=== PATIENT | female | born 1985 ===

== ENCOUNTER 2018-05-17 09:37 | Outpatient (CLI) | payer OTHER | END 2018-05-17 09:38 | disposition home or self-care (01) | LOC: C.LAB 09:37 | DX: N92.6 Irregular menstruation, unspecified (principal) ==

== ENCOUNTER 2018-05-24 12:26 | Outpatient (CLI) | payer OTHER | END 2018-05-24 12:27 | disposition home or self-care (01) | LOC: C.LAB 12:26 | DX: Z34.81 Encounter for supervision of other normal pregnancy, first trimester (principal) ==

== ENCOUNTER 2018-06-14 16:00 | Emergency (ER) | payer MEDICAID, OTHER ==
[2018-06-14 16:05] VITALS: BP 127/77; PULSE 79; RESP 20; TEMP 98.5; O2SAT 100
--- NOTE | 2018-06-14 16:19 | C.PDOC ---
History Of Present Illness Patient is a 32 year old female, who is 11 weeks , presenting to the ED for evaluation of intermittent lower abdominal pain with nausea since yesterday. Patient points to suprapubic area when describing the pain. Patient also reports having constipation for a few days, but did have a small hard bowel movement this morning. She denies any dysuria, vaginal bleeding, vaginal discharge, back pain, or vomiting. Patient has care including US and her OBGYN is . Time Seen by Provider: 06/14/18 16:11 Chief Complaint (Nursing): Abdominal Pain History Per: Patient History/Exam Limitations: no limitations Onset/Duration Of Symptoms: Days (1) Current Symptoms Are (Timing): Still Present Quality Of Discomfort: "Pain" (lower abdominal area) Associated Symptoms: Nausea, Constipation. denies: Vomiting, Back Pain Recent travel outside of the [place]: [place] Additional History Per: Patient Abnormal Vaginal Bleeding: No : 1 Para: 0 Past Medical History Reviewed: Historical Data, Nursing Documentation, Vital Signs Vital Signs: Last Vital Signs Temp 98.5 F 06/14/18 16:03 Pulse 79 06/14/18 16:03 Resp 20 06/14/18 16:03 BP 127/77 06/14/18 16:03 Pulse Ox 100 06/14/18 16:03 - Medical History PMH: No Chronic Diseases Surgical History: No Surg Hx Family History: States: No Known Family Hx - Social History Hx Alcohol Use: Yes Hx Substance Use: No - Immunization History Hx Tetanus Toxoid Vaccination: No Hx Influenza Vaccination: No Review Of Systems Gastrointestinal: Positive for: Nausea, Abdominal Pain (suprapubic area ), Constipation. Negative for: Vomiting Genitourinary: Negative for: Dysuria, Vaginal Discharge, Vaginal Bleeding Musculoskeletal: Negative for: Back Pain Physical Exam - Physical Exam Appears: Well, Non-toxic, No Acute Distress Skin: Normal Color, Warm, Dry, No Rash Head: Atraumatic, Normacephalic Eye(s): bilateral: Normal Inspection Oral Mucosa: Moist Neck: Normal ROM Chest: Symmetrical Cardiovascular: Rhythm Regular, No Murmur Respiratory: Normal Breath Sounds, No Rales, No Rhonchi, No Wheezing Gastrointestinal/Abdominal: Bowel Sounds, Soft, Tenderness (minor tenderness to suprapubic region ), No Mass, No Distention, No Guarding, No Rebound Back: No CVA Tenderness Neurological/Psych: Oriented x3, Normal Speech ED Course And Treatment O2 Sat by Pulse Oximetry: 100 (on RA) Pulse Ox Interpretation: Normal Medical Decision Making Medical Decision Making: Plan: Urinalysis UA negative. Patient remained well and in no acute distress. Abdomen soft without guarding and no reports of bleeding. Patient symptoms likely related to constipation. Recommend drinking fluids and increasing fiber intake. Rx given. Recommend follow up with OB outpatient. IF patient develops increased pain, vaginal bleeding or other concern advised to return to ER Disposition Counseled Patient/Family Regarding: Diagnosis, Need For Followup, Rx Given - Disposition Referrals: Angelita Valles, ACNP-BC [Advanced Practice Nurse] - Disposition: HOME/ ROUTINE Disposition Time: 16:49 Condition: GOOD Additional Instructions: [place] laxante para ayudar con el estreimiento Come ms taylor y mary santos. Seguimiento con mcclain mdico. Regrese al hospital si presenta dolor intenso o sangrado. Prescriptions: Magnesium Hydroxide [Milk Of Magnesia] 30 ml PO HS PRN #26 oz PRN Reason: Constipation Psyllium Husk/Aspartame [Metamucil Fiber Singles Packet] 3.4 gm PO DAILY #12 powd.pack Instructions: Constipation, Adult (DC) Print Language: ROMANIAN - POA Present On Arrival: None - Clinical Impression Clinical Impression: Constipation during - PA / FASTENER TECHNOLOGIST / Resident Statement MD/DO has examined the patient and agrees with the treatment plan. - Scribe Statement The provider has reviewed the documentation as recorded by the Gómez Massey All medical record entries made by the Hawkibthanh were at my direction and personally dictated by me. I have reviewed the chart and agree that the record accurately reflects my personal performance of the history, physical exam, medical decision making, and the department course for this patient. I have also personally directed, reviewed, and agree with the discharge instructions and disposition.
[2018-06-14 16:44] LABS: SQUAMOUS EPITHIAL 1 /hpf (0-5); URINE BILIRUBIN NEGATIVE (NEGATIVE); URINE BLOOD 1+ (NEGATIVE); URINE CLARITY Clear (Clear); URINE COLOR Yellow (YELLOW); URINE GLUCOSE (UA) NORMAL (Normal); URINE LEUKOCYTE ESTERASE NEG Leu/uL (Negative); URINE PROTEIN NEGATIVE (NEGATIVE); URINE UROBILINOGEN NORMAL mg/dL (0.2-1.0)
== END 2018-06-14 16:58 | disposition home or self-care (01) ==
LOC: C.ER 16:00
DX: O26.891 Other specified pregnancy related conditions, first trimester (principal); K59.00 Constipation, unspecified; Z3A.11 11 weeks gestation of pregnancy

== ENCOUNTER 2018-06-16 13:00 | Emergency (ER) | payer MEDICAID ==
[2018-06-16] MEDS ORDERED: Sodium Chloride 0.9% 1,000 ML IV ONE (13:30)
[2018-06-16 13:33] VITALS: O2SAT 100
--- NOTE | 2018-06-16 14:11 | C.PDOC ---
History Of Present Illness 32 year old female with history of hypothyroidism presents to ED with complaint of suprapubic abd pain that began 3 days ago. Patient is 11 weeks . , P:0, A:0. pt seen 2 days ago, sent home after dx constipation. . Patient denies fever,vaginal bleeding, nausea, and vomiting. Patient has no other complaints. Time Seen by Provider: 06/16/18 13:24 Chief Complaint (Nursing): Abdominal Pain History Per: Patient History/Exam Limitations: no limitations Onset/Duration Of Symptoms: Days (3) Current Symptoms Are (Timing): Still Present Severity: None Location Of Pain/Discomfort: Periumbilical, Other (lower abdomen) Quality Of Discomfort: "Pain" Associated Symptoms: denies: Fever, Nausea, Vomiting Exacerbating Factors: None Alleviating Factors: None Abnormal Vaginal Bleeding: No : 1 Para: 0 Miscarriage: 0 Past Medical History Reviewed: Historical Data, Nursing Documentation, Vital Signs Vital Signs: Last Vital Signs Temp 98.8 F 06/16/18 13:16 Pulse 109 H 06/16/18 13:16 Resp 20 06/16/18 13:16 BP 126/75 06/16/18 13:16 Pulse Ox 100 06/16/18 13:16 - Medical History PMH: Hypothyroidism Surgical History: No Surg Hx Family History: States: Unknown Family Hx - Social History Hx Alcohol Use: Yes Hx Substance Use: No - Immunization History Hx Tetanus Toxoid Vaccination: No Hx Influenza Vaccination: No Hx Pneumococcal Vaccination: No Review Of Systems Constitutional: Negative for: Fever, Chills, Weakness Gastrointestinal: Positive for: Abdominal Pain (lower, chi-umbilical area). Negative for: Nausea, Vomiting Genitourinary: Negative for: Vaginal Bleeding Neurological: Negative for: Weakness, Numbness, Dizziness Physical Exam - Physical Exam Appears: Well, Non-toxic, No Acute Distress Skin: Normal Color, Warm, Dry Head: Atraumatic, Normacephalic Neck: Normal ROM, Supple Chest: Symmetrical, No Deformity Cardiovascular: Rhythm Regular, No Murmur Respiratory: No Accessory Muscle Use Gastrointestinal/Abdominal: Soft, Tenderness (supra-pubic area) Neurological/Psych: Oriented x3, Normal Speech, Normal Cognition ED Course And Treatment - Laboratory Results Result Diagrams: 06/16/18 14:09 06/16/18 14:09 O2 Sat by Pulse Oximetry: 100 (in RA) Medical Decision Making Medical Decision Making: Impression: 32 year old female with suprapubic Plan: Transvaginal US ordered for patient Patient given IV fluids and Tylenol PO Labs ordered with UA and U-preg labs mild leukocytosis (previous labs iwth mild leukocytosis), nonspecific. NO rlq ttp. reasssessed numerous times no migration to rlq. pt eating in er in nad. no axorexia. appendcitiis less likely. pt specificallya sking for dc. does not want further obs possibl eadmission for mri. as pt tolerating po, afebrile, no rlq ttp will dc but advise strict return precautions. states will return with worseing symptoms. given strict returnprecautoins for appendcitis. pt and family bedside agree to return with mikain. Disposition - Disposition Referrals: [facility] [Outside] [facility] [Outside] Disposition: HOME/ ROUTINE Disposition Time: 16:00 Condition: GOOD Additional Instructions: follow up with your doctor/clinic. return to any er with worsening. please return with any worsening symptoms. please discuss your lab tests with your doctor Instructions: Threatened Miscarriage, Acute Abdomen (Belly Pain), White Blood Cell Count Differential Test Forms: [employer] (Wallisian) - Clinical Impression Clinical Impression: Abdominal pain, Fibroids - Scribe Statement The provider has reviewed the documentation as recorded by the Scribe (Nasrin Roach) All medical record entries made by the Scribe were at my direction and person ally dictated by me. I have reviewed the chart and agree that the record accurately reflects my personal performance of the history, physical exam, medical decision making, and the department course for this patient. I have also personally directed, reviewed, and agree with the discharge instructions and disposition.
[2018-06-16 14:17] LABS: BASO % 0.1 % (0.0-2.0); EOS % 0.1 % (0.0-4.0); HEMOGLOBIN 11.1 g/dL (11.0-16.0); LYMPH # 0.7 K/uL (1.0-4.3); LYMPH % 4.5 % (20.0-40.0); MEAN CELL VOLUME 84.9 fL (81.0-99.0); MEAN CORPUSCULAR HEMOGLOBIN 28.1 pg (27.0-31.0); MEAN CORPUSCULAR HGB CONC 33.2 g/dL (33.0-37.0); MEAN PLATELET VOLUME 6.9 fL (7.2-11.7); MONO # 1.2 K/uL (0.0-0.8); MONO % 7.7 % (0.0-10.0); NEUT # 14.1 K/uL (1.8-7.0); NEUT % 87.6 % (50.0-75.0); PLATELET COUNT 308 K/uL (130-400); RBC 3.94 Mil/uL (3.80-5.20); RED CELL DISTRIBUTION WIDTH 13.4 % (11.5-14.5); WHITE BLOOD COUNT 16.1 K/uL (4.8-10.8)
[2018-06-16 14:28] LABS: ALB/GLOB RATIO 1.3 (1.0-2.1); ALBUMIN 4.4 g/dL (3.5-5.0); ALT/SGPT 13 U/L (9-52); AST/SGOT 27 U/L (14-36); BLOOD UREA NITROGEN 6 mg/dL (7-17); CALCIUM 9.5 mg/dl (8.6-10.4); GFR NON-AFRICAN AMERICAN > 60; INR 1.2; PROTHROMBIN TIME 13.1 SECONDS (9.7-12.2)
[2018-06-16] MEDS ORDERED: Sodium Chloride 0.9% 1,000 ML ONE (14:53)
[2018-06-16 14:54] LABS: BANDS 1 % (0-2); LYMPHOCYTE 6 % (20-40); MONOCYTE 8 % (0-10); NEUTROPHIL 85 % (50-75); TOTAL CELLS COUNTED 100
[2018-06-16 14:55] LABS: PLATELET ESTIMATE NORMAL (NORMAL)
[2018-06-16 15:43] LABS: HCG,QUALITATIVE URINE POSITIVE (NEGATIVE)
[2018-06-16 15:49] LABS: SQUAMOUS EPITHIAL 2 /hpf (0-5); URINE BACTERIA RARE (<OCC); URINE BILIRUBIN NEGATIVE (NEGATIVE); URINE BLOOD 1+ (NEGATIVE); URINE CLARITY Clear (Clear); URINE COLOR Yellow (YELLOW); URINE GLUCOSE (UA) NORMAL (Normal); URINE LEUKOCYTE ESTERASE NEG Leu/uL (Negative); URINE PROTEIN NEGATIVE (NEGATIVE); URINE UROBILINOGEN NORMAL mg/dL (0.2-1.0)
[2018-06-16 16:54] VITALS: BP 124/75; PULSE 82; RESP 16; TEMP 98.5
--- NOTE | 2018-06-17 10:44 | US ---
Indication: abd pain, preg Comparison: None available Technique: Real-time transabdominal pelvic ultrasound was performed. In addition a transvaginal pelvic ultrasound was necessary to better depict pelvic anatomy. Findings: The uterus measures approximately 12.3 x 8.8 x 11.2 cm. Anteverted. Cervix length measures approximately 5.7 cm. Multiple uterine fibroids are identified. For example: Left posterior fibroid appears pedunculated measuring approximately 6.2 x 5.3 x 4.8 cm. 1.6 x 1.4 x 2.4 cm anterior mid uterine subserosal fibroid. There is a single intrauterine fetus present. The crown-rump length measures 5.6 cm and is compatible with a gestational age of 12 weeks 2 days. There is heart motion which measured 162 BPM. The right ovary is not visualized. The left ovary measures 2.5 x 1.9 x 2.1 cm. Blood flow is demonstrated to the left ovary. Impression: Live single intrauterine with estimated gestational age 12 weeks 2 days. heart rate 162 bpm. Advise an anomaly screen at 16-18 weeks gestational age Fibroid uterus. Preliminary impression was provided by [employer].
== END 2018-06-16 16:54 | disposition home or self-care (01) ==
LOC: C.ER 13:00
DX: O34.11 Maternal care for benign tumor of corpus uteri, first trimester (principal); R10.9 Unspecified abdominal pain; D25.9 Leiomyoma of uterus, unspecified; Z3A.12 12 weeks gestation of pregnancy
CPT/HCPCS: 76805; 76817; 80053; 81001; 84702; 84703; 85025; 85610; 85730; 86850; 86900; 99284; J7030